=== PATIENT | female | born 1940 | race Caucasian/White ===

== ENCOUNTER 2024-06-24 19:01 | Emergency (ER) | payer OTHER, SELFPAY ==
[2024-06-24 19:08] VITALS: BP 130/70
[2024-06-24 19:10] VITALS: BP 130/70
--- NOTE | 2024-06-24 19:11 | ED.GENMED ---
History of Present Illness
General
Chief Complaint: Fainting/Passed Out
Source: patient
Exam Limitations: none
Time Seen by Provider: 06/24/24 19:06
History of Present Illness
History of Present Illness:
See MDM
Past History
Past History
ED Past Medical History: HTN
ED Past Surgical History: None
Social History
Tobacco: Non-smoker
Alcohol: None
Drug: None
Personal:
Living: alone
Employment: Retired
Family History
Family History: Other (Noncontributory)
Phy Exam
Physical Exam
Physical Exam:
See MDM
Course
Orders/Labs/Results
Orders:
Orders
06/24/24 19:11
Electrocardiogram (*1) Urgent
Reason for Study: Syncope
EKG- Treatment ONCE
06/24/24 19:51
Complete Blood Count/With Diff Urgent
Comprehensive Metabolic Panel Urgent
Abnormal Lab Results
06/24/24
19:51
MCH 31.3 H pg
(27.0-31.0)
Lymphocytes % 18.8 L %
(20.5-51.1)
Chloride 108 H mmol/L
(98-107)
BUN 30 H mg/dl
(7-17)
Creatinine 1.1 H mg/dL
(0.6-1.0)
Glucose 140 H mg/dl
(70-99)
06/24/24 19:51
06/24/24 19:51
Vital Signs
Initial and Last Documented VS:
Initial Vital Signs
Pulse Resp BP Pulse Ox
70 13 130/70 86
06/24/24 19:08 06/24/24 19:08 06/24/24 19:08 06/24/24 19:08
Last Documented Vital Signs
Temp Pulse Resp BP Pulse Ox
98.3 F 77 20 139/61 97
06/24/24 19:10 06/24/24 20:00 06/24/24 20:00 06/24/24 20:00 06/24/24 20:00
MDM/Problems Addressed
Differential Diagnosis Includes:
HPI and MDM Narrative:
84-year-old female presenting for evaluation of syncopal event. Patient ate Thanksgiving dinner and then she stood up to get the pie and then she felt weak and dizzy. She states family brought her to the ground. She denies head trauma. On
evaluation, patient already started on IV fluids by EMS. She states she is feeling somewhat better. Patient states she had a physical 1 week ago and blood work was all normal.
Given her history, I discussed likely vasovagal syncope. She states she was in the kitchen all day cooking. She admits to not drinking enough water.
Will continue to monitor on telemetry and will obtain basic blood work and EKG
Physical exam
General: Well appearing and non-toxic
HEENT: protecting airway. Mildly dry mucous membranes
Neck: appears supple
CV: No evidence of cyanosis. Regular rate and rhythm
Resp: No accessory muscle use
Abd: Non-distended
Extremities: No deformities. No leg edema or unilateral tenderness
Neuro: alert
Psych: Normal affect
Skin: Intact
Problems Addressed including Acute and Chronic Conditions affecting care:
1. Syncope
Acuity: acute
Prognosis: stable
Details: Likely vasovagal will obtain basic blood work and EKG. Discussed outpatient Holter monitor if symptoms persist
Updates
EKG nonischemic. Patient remaining normal sinus on the monitor. Daughter at bedside stated that she feels comfortable staying with her at home tonight. Discussed outpatient follow-up with PCP and cardiology to discussed Holter monitor.
Differential Diagnosis (but not limited to): Vasovagal syncope, cardiac arrhythmia
Testing considered: Troponin but she denies chest pain shortness of breath
Drug therapy (if applicable): OTC meds, please see d/c instruction regarding Rx drugs
Amount and/or Complexity of Data Reviewed
Clinical info obtained from: Patient
External data reviewed: N/A
Labs I independently reviewed (but not limited to): Mildly elevated BUN and creatinine
Radiology: N/A
Pulse Ox: not hypoxic
EKG independently reviewed: Sinus rhythm, normal axis, no STEMI
Door Hanger: sinus rhythm
Critical Care: N/A
Risk of Complication:
Social Determinants of health: Good social support
Discussed with other providers: N/A
Escalation of Care includes Admit/Obs: After being observed in the Emergency Department, pt stable for discharge.
Occasional wrong word or 'sound a like' substitutions may have occurred due to the inherent limitations of voice recognition software. Read the chart carefully and recognize, using context, where substitutions have occurred.
*Critical Care Note
Total Time (30-74mins, 75-104mins- exclusive of procedures): Not Applicable
ED Attending Note
-
Portions of this chart may have been created with voice recognition software.� Occasional wrong word or��sound alike� substitutions may have occurred due to the inherent limitations of voice recognition software.
Discharge Plan
Departure
Patient Disposition: Home (Routine Discharge)
Date of Disposition: 06/24/24
Time of Disposition: 20:50
Patient with high blood pressure during this ER visit?: No
Discharge Problem:
Syncope
Instructions: Syncope (Fainting) (DC)
Prescriptions:
No Action
losartan 25 MG tablet
1 tab PO DAILY
Indapamide
1 tab PO PRN PRN (Reason: edema)
Multivitamin
1 tab PO DAILY
ibuprofen 600 MG tablet
600 mg PO Q6HPRN PRN (Reason: pain) Qty: 12 0RF
Referrals:
Dieter Ashraf MD [Family Provider] -
Activity Restrictions/Additional Instructions:
Please return for any worsening symptoms.
You may return at any time if you have further concerns.
Please follow up with your doctor or clearance coordinator at the first available appointment, preferably this week. Please discuss outpatient Holter monitor to assess for any undiagnosed heart arrhythmias.
Thank you for choosing [facility].
Interventions
Interventions:
*Risk Screen - Suicide Last Done: 06/24/24 19:10
*General Assessment Last Done: 06/24/24 19:10
*Neglect/Abuse Screening Last Done: 06/24/24 19:10
ED- Fall Risk Assessment Last Done: 06/24/24 19:17
*ED COVID-19 Vaccine History Last Done: 06/24/24 19:17
ED- Cardiac Assessment Last Done: 06/24/24 19:17
ED- Neurological Assessment Last Done: 06/24/24 19:17
Discharge Date and Time
Print Language: POLISH
[2024-06-24 19:51] VITALS: BP 140/69
[2024-06-24 19:53] VITALS: BMI 26.8
[2024-06-24 20:00] VITALS: BP 139/61
[2024-06-24 20:15] LABS: % Basophils 0.8 % (0-2); % Immature Granulocytes 0.3 % (0-0.5); % Lymphocytes 18.8 % (20.5-51.1); % Neutrophils 72.1 % (42.2-75.2); Absolute Basophils 0.1 10^3/uL (0-0.2); Absolute Eosinophils 0.1 10^3/uL (0-0.7); Absolute Lymphocytes 1.7 10^3/uL (1.2-3.4); Absolute Monocytes 0.6 10^3/uL (0.1-0.6); Absolute Neutrophils 6.4 10^3/uL (1.4-6.5); Hematocrit 40.1 % (37.0-47.0); Hemoglobin 13.4 g/dL (12.0-16.0); Mean Corp Hgb Conc. 33.4 g/dL (33.0-37.0); Mean Corpuscular Hgb 31.3 pg (27.0-31.0); Mean Corpuscular Volume 93.7 fL (81.0-99.0); Mean Platelet Volume 9.7 fL (7.4-10.4); Nucleated Red Blood Cells % 0 %; Platelet Count 269 10^3/uL (130-400); Red Blood Cell Count 4.28 10^6/uL (4.20-5.40); Red Cell Dist. Width 12.5 % (11.5-14.5); White Blood Cell Count 8.9 10^3/uL (4.8-10.8)
[2024-06-24 20:27] LABS: ALT (SGPT) 20 U/L (0-35); AST (SGOT) 26 U/L (14-36); Albumin 3.6 g/dl (3.5-5.0); Alkaline Phosphatase 62 U/L (38-126); Blood Urea Nitrogen 30 mg/dl (7-17); Calcium 9.1 mg/dl (8.4-10.2); Carbon Dioxide 22 mmol/L (22-30); Chloride 108 mmol/L (98-107); Estimated Creatinine Clearance 36 ml/min; Glucose 140 mg/dl (70-99); Sodium 142 mmol/L (135-145); Total Bilirubin 0.4 mg/dl (0.2-1.3); Total Protein 6.3 g/dl (6.3-8.2); eGFR 49.86
[2024-06-24 20:30] VITALS: BP 149/70
== END 2024-06-24 21:59 | disposition home or self-care (01) ==
LOC: EMR 19:01
PROVIDERS: EMERGENCY PHYSICIAN Student in an Organized Health Care Education/Training Program; FAMILY PHYSICIAN Internal Medicine
DX: R55 Syncope and collapse (principal); I10 Essential (primary) hypertension
CPT/HCPCS: 99283; 80053; 85025; 93005

== ENCOUNTER → 2024-12-06 13:13 | Outpatient (REF) | payer OTHER, SELFPAY | LOC: HWRAD 13:13 | PROVIDERS: ATTENDING PHYSICIAN Specialist; FAMILY PHYSICIAN Internal Medicine | DX: N20.0 Calculus of kidney (principal) | CPT/HCPCS: 74176 ==